=== PATIENT | male | born 1970 | race Caucasian/White ===

== ENCOUNTER 2022-08-06 14:30 | Emergency (ER) | payer BC, OTHER ==
[2022-08-06 18:50] VITALS: BP 136/80; PULSE 77
== END 2022-08-06 16:30 | disposition home or self-care (01) ==
LOC: FB.ED 14:30
DX: M79.604 Pain in right leg (principal); R77.8 Other specified abnormalities of plasma proteins
CPT/HCPCS: 36415; 85379; 99283